=== PATIENT | female | born 1950 | race Caucasian/White ===

== ENCOUNTER 2020-01-11 09:55 | Day surgery (SDC) | payer MEDICARE, OTHER ==
[~2020-01-11] VITALS: Ht 160 cm; Wt 72.7 kg
[2020-01-11] MEDS ORDERED: DIPHENHYDRAMINE 50 MG/ML, 1ML ONE (10:49)
[2020-01-11 10:54] VITALS: BP 144/84
[2020-01-11] MEDS ORDERED: PLEASE ENTER HEIGHT AND WEIGHT MC SCH (11:00)
[2020-01-11] MEDS ORDERED: DIPHENHYDRAMINE 50 MG/ML, 1ML IVPush ONE (11:00)
[2020-01-11] MEDS ORDERED: SODIUM CHLORIDE 0.9% 1,000 ML IV SCH ×2 (11:00→13:30)
[2020-01-11 11:18] LABS: ANION GAP 8 mmol/L (5-15); CALCIUM 9.5 mg/dL (8.5-10.1); CHLORIDE 109 mmol/L (98-107)
[2020-01-11] MEDS ORDERED: FENTANYL PF 100 MCG/2ML ONE (11:39)
[2020-01-11] MEDS ORDERED: MIDAZOLAM 1 MG/ML, 5ML ONE (11:39)
[2020-01-11] MEDS ORDERED: TICAGRELOR 90 MG TABLET ONE (11:40)
[2020-01-11] MEDS ORDERED: HEPARIN 1,000 UNITS/ML, 10ML ONE (11:40)
[2020-01-11] MEDS ORDERED: BIVALIRUDIN 250 MG ONE (11:40)
[2020-01-11] MEDS ORDERED: LIDOCAINE 2%, 20ML ONE (11:40)
[2020-01-11] MEDS ORDERED: VERAPAMIL 2.5 MG/ML, 2ML ONE (11:40)
[2020-01-11] MEDS ORDERED: NITROGLYCERIN 30 MCG/ML, 20ML VIAL ONE (11:55)
[2020-01-11] MEDS ORDERED: LIDOCAINE 1%, 20ML ONE (12:44)
[2020-01-11] MEDS ORDERED: ASPI81TA45 PO (14:47)
[2020-01-11] MEDS ORDERED: FURO-92 PO (14:47)
[2020-01-11] MEDS ORDERED: CARV-39 PO (14:47)
[2020-01-11] MEDS ORDERED: LISI-170 PO (14:48)
[2020-01-11] MEDS ORDERED: POTA20TA14 PO (14:48)
[2020-01-11] MEDS ORDERED: MULT-658 PO (14:49)
[2020-01-11] MEDS ORDERED: L.AC1CAP6 PO (14:49)
[2020-01-11] MEDS ORDERED: OMEG-170 PO (14:49)
== END 2020-01-11 16:13 | disposition home or self-care (01) ==
LOC: CACL 09:55
PROVIDERS: ATTEND Internal Medicine Cardiovascular Disease
DX: I20.9 Angina pectoris, unspecified (principal); I42.9 Cardiomyopathy, unspecified; I27.9 Pulmonary heart disease, unspecified; I10 Essential (primary) hypertension; J84.10 Pulmonary fibrosis, unspecified; Z79.899 Other long term (current) drug therapy; Z88.8 Allergy status to other drugs, medicaments and biological substances
CPT/HCPCS: 36415; 80048; 82330; 82803; 82947; 84132; 84295; 85014; 93460; 99156; 99157; C1760; C1769; C1894; J0583; J1200; J1644; J2250; J3010; J7030; Q9967